=== PATIENT | female | born 1965 | race Caucasian/White ===

== ENCOUNTER 2018-08-10 20:16 | Emergency (ER) | payer BC ==
[~2018-08-10] VITALS: Wt 92.0 kg
[~2018-08-10 20:16] MED LIST: CALC500T91 PO; IBUP200C11 PO; TRAM50TA2 PO
[2018-08-10 20:20] VITALS: BP 158/86; PULSE 65; RESP 18
[2018-08-10] MEDS ORDERED: IBUP-1542 PO (21:51)
[2018-08-10] MEDS ORDERED: TRAM50TA2 PO (21:51)
[2018-08-10] MEDS ORDERED: HYDR50CA2 PO (21:51)
[2018-08-10] MEDS ORDERED: TRIA15CR55 TOP (21:51)
--- NOTE | 2018-08-10 21:58 | ERD ---
ER Documentation Chief Complaint Chief Complaint BILAT FOOT PAIN X'S 1 MONTH. SOLES OF FEET ARE RED, CRACKED, SWOLLEN. HPI 52-year-old female presents here to emergency department for complaints of cracking of the skin foot pain for a month now, schedule dermatology appointment in September, cannot wait anymore, was given hydrocortisone cream, had a biopsy done and was told not fungal, most likely some form of dermatitis. Patient continues to have the itching and pain, burning pain 6/10 scale, as was upon touching the area. Patient denies any fever or chills. Patient denies any rash in other parts of the body. ROS All systems reviewed and are negative except as per history of present illness. Medications Home Meds Active Scripts Tramadol HCl (Tramadol HCl) 50 Mg Tablet, 50 MG PO Q6 PRN for PAIN, #10 TAB Prov:MASHA TUCKER NP 08/10/18 Ibuprofen* (Motrin*) 600 Mg Tab, 600 MG PO Q6H PRN for PAIN AND OR ELEVATED TEMP, #30 TAB Prov:MASHA TUCKER NP 08/10/18 Hydroxyzine Pamoate* (Hydroxyzine Pamoate*) 50 Mg Capsule, 50 MG PO TID PRN for ITCHING, #30 CAP Prov:MASHA TUCKER NP 08/10/18 Triamcinolone Acetonide (Triamcinolone Acetonide) 0.1% - 15 Gm Cream.gm., 1 APPLIC TOP BID, #1 TUB Prov:MASHA TUCKER NP 08/10/18 Tramadol HCl (Tramadol HCl) 50 Mg Tablet, 50 MG PO Q6 PRN for PAIN, #12 TAB Prov:HECTOR LORENZANA MD 04/16/16 Reported Medications Calcium Carbonate ([id number]) 500 Mg Tablet, 500 MG PO BID, TAB 04/16/16 Ibuprofen* (Advil*) 200 Mg Capsule, 200 MG PO Q6H PRN for PAIN, CAP 04/16/16 Allergies Allergies: Coded Allergies: No Known Allergy (Unverified , 04/16/16) PMhx/Soc History of Surgery: Yes (uterine fibroids) Hx Neurological Disorder: No Hx Respiratory Disorders: No Hx Cardiac Disorders: Yes (High cholesterol) Hx Psychiatric Problems: No Hx Miscellaneous Medical Probl: Yes Hx Alcohol Use: No Hx Substance Use: No Hx Tobacco Use: No Smoking Status: Never smoker FmHx Family History: No diabetes, No coronary disease, No other Physical Exam Vitals Vital Signs Date Temp Pulse Resp B/P (MAP) Pulse Ox O2 O2 Flow FiO2 Time Delivery Rate 08/10/18 97.8 65 18 158/86 97 20:20 (110) Physical Exam GENERAL: The patient is well developed and appropriate for usual state of health, in no apparent distress. CHEST: Clear to auscultation bilaterally. There are no rales, wheezes or rhonchi. HEART: Regular rate and rhythm. No murmurs, clicks, rubs or gallops. No S3 or S4. ABDOMEN: Soft, nontender and nondistended. Good bowel sounds. No rebound or guarding. No gross peritonitis. No gross organomegaly or masses. No Hobbs sign or McBurney point tenderness. BACK: No midline or flank tenderness. EXTREMITIES: Equal pulses bilaterally. There is no peripheral clubbing, cyanosis or edema. No focal swelling or erythema. Full range of motion. Grossly neurovascularly intact. NEURO: Alert and oriented. Cranial nerves 2-12 intact. Motor strength in all 4 extremities with 5/5 strength. Sensation grossly intact. Normal speech and gait. SKIN: Noted dryness of the skin and cracking of the skin of the soles of bilateral foot, noted plaques noted. No erythema noted. There is no apparent ecchymosis or petechia. The skin is warm and dry. HEMATOLOGIC AND LYMPHATIC: There is no evidence of excessive bruising or lymphedema. No gross cervical, axillary, or inguinal lymphadenopathy. Procedures/MDM Medical decision making: Symptoms some form of dermatitis, nonspecific at this time, possible eczema or psoriasis. At this time, symptoms of any infection, no symptoms of any MRSA infection, no symptoms of any sepsis. No symptoms of any contagious rash. Prescription was given for triamcinolone cream, hydroxyzine ibuprofen tramadol, was advised to follow-up with primary doctor in 2-3 days for reevaluation of symptoms. Patient is advised to return to emergency department for any worsening symptoms. Disposition: Home. Stable Departure Diagnosis: Primary Impression: Dermatitis Condition: Stable Patient Instructions: Dermatitis, Non-Specific MASHA TUCKER NP Aug 10, 2018 21:58
== END 2018-08-10 22:18 | disposition home or self-care (01) ==
LOC: FTE 20:16
DX: L30.9 Dermatitis, unspecified (principal)
CPT/HCPCS: 99283